=== PATIENT | male | born 1995 | race Caucasian/White ===

== ENCOUNTER 2019-12-03 11:07 | Emergency (ER) | payer SELFPAY ==
[~2019-12-03] VITALS: Ht 175.3 cm; Wt 88.2 kg
[2019-12-03 11:24] VITALS: BP 145/90; TEMP 97.4
[2019-12-03] MEDS ORDERED: FLEXERIL 1010 MG/TAB PO (13:05)
[2019-12-03] MEDS ORDERED: MEDROL 4MG DOSPA4 MG PO (13:05)
[2019-12-03] MEDS ORDERED: NORCO 325 MG-51 TAB PO (13:05)
[2019-12-03 13:33] VITALS: PULSE 68
[2019-12-03] MEDS ORDERED: VALIUM 5MG T5 MG/TAB PO (13:33)
== END 2019-12-03 13:30 | disposition home or self-care (01) ==
LOC: COL.ER 11:07 → EDSEX 11:09 → COL.ER 11:09
DX: S29.011A Strain of muscle and tendon of front wall of thorax, initial encounter (principal); F17.210 Nicotine dependence, cigarettes, uncomplicated; X50.0XXA Overexertion from strenuous movement or load, initial encounter